=== PATIENT | male | born 1955 | race African-American/Black ===

== ENCOUNTER 2022-07-08 10:58 | Outpatient (CLI) | payer OTHER | END 2022-07-08 11:07 | disposition home or self-care (01) | LOC: MRI 10:58 | PROVIDERS: ATTEND Internal Medicine Cardiovascular Disease | DX: I63.50 Cerebral infarction due to unspecified occlusion or stenosis of unspecified cerebral artery (principal) | CPT/HCPCS: 70551 ==

== ENCOUNTER 2023-05-19 10:30 | Outpatient (CLI) | payer OTHER | END 2023-05-19 10:38 | disposition home or self-care (01) | LOC: RAD 10:30 | PROVIDERS: ATTEND Internal Medicine Cardiovascular Disease | DX: M12.9 Arthropathy, unspecified (principal); M46.47 Discitis, unspecified, lumbosacral region ==

== ENCOUNTER 2023-06-02 10:40 | Outpatient (CLI) | payer OTHER | END 2023-06-02 10:51 | disposition home or self-care (01) | LOC: MRI 10:40 | PROVIDERS: ATTEND Internal Medicine Cardiovascular Disease | DX: M46.47 Discitis, unspecified, lumbosacral region (principal) | CPT/HCPCS: 72148 ==